=== PATIENT | female | born 1975 | race Caucasian/White ===

== ENCOUNTER 2017-10-30 08:57 | Day surgery (SDC) | payer OTHER ==
[~2017-10-30] VITALS: Ht 177.8 cm; Wt 66.7 kg
[~2017-10-30 08:57] MED LIST: NOHOMEMEDS
[2017-10-30 09:31] VITALS: BP 120/73
[2017-10-30 12:56] VITALS: BP 117/55
[2017-10-30 13:33] VITALS: BP 116/66
== END 2017-10-30 13:40 | disposition home or self-care (01) ==
LOC: SDC
PROC: 0UBC7ZX Excision of Cervix, Via Natural or Artificial Opening, Diagnostic (ICD-10-PCS; principal; 2017-10-30)
DX: N87.1 Moderate cervical dysplasia (principal); F17.200 Nicotine dependence, unspecified, uncomplicated; Z98.51 Tubal ligation status; Z82.3 Family history of stroke; Z82.49 Family history of ischemic heart disease and other diseases of the circulatory system; Z84.1 Family history of disorders of kidney and ureter
CPT/HCPCS: 88305; 88341 TC; 88342 TC; J0131; J1100; J1885; J2405; J3010